=== PATIENT | female | born 1955 | race Caucasian/White ===

== ENCOUNTER 2018-09-04 10:37 | Inpatient (IN) | payer OTHER ==
[~2018-09-04] VITALS: Ht 162.6 cm; Wt 93.9 kg
[2018-09-04] MEDS: ALBUTEROL SULFATE HFA 8GM INHALATION AEROSOL INH SCH ×2 (01:10→20:50)
[~2018-09-04 10:37] MED LIST: ACETAMINOPHEN325 M1 PO; AMLODIPINE BESY10 MG PO; ANTI-DIARRHEA2 MG PO; ATORVASTATIN CA20 MG PO; CALCIUM 600 +1 EAC3 PO; CELEBREX200 MG PO; DICLOFENAC POTA50 MG PO; ESTRADIOL40 MG/1 ML IM; GABAPENTIN800 MG PO; IMURAN50 MG PO; LOSARTAN-HCTZ1 EAC1 PO; LOVASTATIN40 MG PO; MELATONIN3 M1 PO; NEXIUM40 MG PO; PERCOCET 10-321 EACH PO; PREMARIN0.3 MG VG; PREVACID30 MG PO; PROAIR HFA INH8.5 GM INH; SALAGEN5 MG PO; SIMETHICONE80 MG PO; [UNRECOGNIZED DRUG - OTHER] TOP
[2018-09-04] MEDS ORDERED: KETOROLAC TROMETHAMINE 30 MG/ML VIAL IV STA (11:42)
[2018-09-04] MEDS ORDERED: ONDANSETRON HCL INJ 2MG/ML 2ML 2 MG/ML VIAL IV STA (11:42)
[2018-09-04] MEDS ORDERED: MEPERIDINE HCL INJ 25 MG/ML VIAL IV STA (11:42)
[2018-09-04] MEDS ORDERED: DEXAMETHASONE SOD PHOS 10 MG/1 ML VIAL IM ONE (11:45)
[2018-09-04] MEDS ORDERED: MEPERIDINE HCL INJ 50 MG/ML INJ IV ONE (12:00)
--- NOTE | 2018-09-04 14:56 | Diagnostic Imaging Report ---
Examination: CT LUMBAR SPINE WO History: Lower back pain radiates down the right leg. Comparison studies: None Technique: Axial images were obtained through the lumbar spine from L1. Coronal and sagittal reconstructions obtained from the axial data. Dose modulation, iterative reconstruction, and/or weight based adjustment of the mA/kV was utilized to reduce the radiation dose to as low as reasonably achievable. Intravenous contrast: None Findings: The usual 5 non-rib bearing lumbar vertebral bodies are present. Alignment: Normal lordosis. No scoliosis. Soft tissues: Atherosclerotic calcification of the abdominal aorta. Paraspinal muscles: No abnormalities. Sacroiliac joints: No degenerative changes. Vertebrae: No fractures, infection or neoplasm. Degenerative changes: L1-L2: Mild bilateral facet arthropathy. No degenerative disc or canal or foraminal stenosis. L2-L3: Asymmetric to the left disc bulge with a left foraminal disc protrusion and mild bilateral facet arthropathy results in mild left neural foraminal narrowing. No right foraminal or canal stenosis. L3-L4: Asymmetric to the left disc bulge, moderate ligamentum flavum thickening and severe bilateral facet arthropathy result in moderate bilateral neural foraminal narrowing and severe canal stenosis. L4-L5: Grade I anterolisthesis without pars defect. Uncovering of a diffuse disc bulge, moderate ligamentum flavum thickening and severe bilateral facet arthropathy result in severe bilateral neural foraminal narrowing and moderate to severe canal stenosis. L5-S1: Asymmetric to the left disc bulge an severe bilateral facet arthropathy result in severe bilateral neural foraminal narrowing and mild canal stenosis. IMPRESSION: 1. Degenerative changes from L2 through L5 S1 with severe canal stenosis at L3-L4 and moderate to severe canal stenosis at L4-L5 and mild canal stenosis at L5-S1. 2. Severe bilateral neural foraminal narrowing at L4-L5 and L5-S1. 3. Degenerative grade I anterolisthesis of L4 on L5. Signed by: Dr. Juju Yarbrough M.D. on 09/04/2018 2:52 PM
[2018-09-04] MEDS ORDERED: MEPERIDINE HCL/PF 25 MG/0.5 ML AMP IV PRN (15:15)
[2018-09-04] MEDS ORDERED: MEPERIDINE HCL INJ 25 MG/ML VIAL IV PRN (15:30)
[2018-09-04] MEDS ORDERED: MEPERIDINE HCL INJ 50 MG/ML INJ IV PRN (15:30)
--- OUTSIDE RECORDS SUMMARY | 2018-09-04 15:40 | XMS REPORT ---
Author [facility] Address Unknown Phone Unavailable Care Team Providers Care Building Equipment Operator Name Role Phone May WESTBROOK Unavailable Unavailable Problems This patient has no known problems. Allergies, Adverse Reactions, Alerts This patient has no known allergies or adverse reactions. Medications This patient has no known medications. Results Test Description Test Time Test Comments Text Results Atomic Results Result Comments CT LUMBAR SPINE WO 2018-09-04 14:41:00 [facility] [address] [address] Patient Name: CHRISTOPHE TORRES MR #: [id number] : 1955 Age/Sex: 62/F Req #: [id number] Adm Physician: Ordered by: JORGE KAUR TOOLING ENGINEER Report #: [id number] Location: ER Room/Bed: Procedure: [id number] CT/CT LUMBAR SPINE WO Exam Date: 09/04/18 Exam Time: 1220 REPORT STATUS: Signed Examination: CT LUMBAR SPINE WO History: Lower back pain radiates down the right leg. Comparison studies: None Technique: Axial images were obtained through the lumbar spine from L1. Coronal and sagittal reconstructions obtained from the axial data. Dose modulation, iterative reconstruction, and/or weight based adjustment of the mA/kV was utilized to reduce the radiation dose to as low as reasonably achievable. Intravenous contrast: None Findings: The usual 5 non-rib bearing lumbar vertebral bodies are present. Alignment: Normal lordosis. No scoliosis. Soft tissues: Atherosclerotic calcification of the abdominal aorta. Paraspinal muscles: No abnormalities. Sacroiliac joints: No degenerative changes. Vertebrae: No fractures, infection or neoplasm. Degenerative changes: L1-L2: Mild bilateral facet arthropathy. No degenerative disc or canal or foraminal stenosis. L2-L3: Asymmetric to the left disc bulge with a left foraminal disc protrusion and mild bilateral facet arthropathy results in mild left neural foraminal narrowing. No right foraminal or canal stenosis. L3-L4: Asymmetric to the left disc bulge, moderate ligamentum flavum thickening and severe bilateral facet arthropathy result in moderate bilateral neural foraminal narrowing and severe canal stenosis. L4-L5: Grade I anterolisthesis without pars defect. Uncovering of a diffuse disc bulge, mo derate ligamentum flavum thickening and severe bilateral facet arthropathy result in severe bilateral neural foraminal narrowing and moderate to severe canal stenosis. L5-S1: Asymmetric to the left disc bulge an severe bilateral facet arthropathy result in severe bilateral neural foraminal narrowing and mild canal stenosis. IMPRESSION: 1. Degenerative changes from L2 through L5 S1 with severe canal stenosis at L3-L4 and moderate to severe canal stenosis at L4-L5 and mild canal stenosis at L5-S1. 2. Severe bilateral neural foraminal narrowing at L4-L5 and L5-S1. 3. Degenerative grade I anterolisthesis of L4 on L5. Signed by: Dr. Juju Yarbrough M.D. on 09/04/2018 2:52 PM Dictated By: JUJU WINTERS MD [id number] Transcribed By: ABEL on 09/04/18 145 COPY TO: JORGE KAUR NP
--- NOTE | 2018-09-04 17:10 | NUR ---
DR. Alexsander SIMMONS AT BEDSIDE AT THIS TIME
[2018-09-04] MEDS ORDERED: LORAZEPAM INJ 2 MG/ML VIAL IV PRN (17:15)
[2018-09-04] MEDS ORDERED: SIMETHICONE 80 MG CHEW PO PRN (17:15)
[2018-09-04] MEDS ORDERED: HYDROMORPHONE 1MG/1ML INJ IV PRN (17:15)
--- NOTE | 2018-09-04 17:30 | NUR ---
received report from ita in er. awaiting for pt to arrive to floor
[2018-09-04] MEDS: HYDROMORPHONE 2MG/ML 2 MG/ML ML IV PRN ×2 (18:05→20:53)
--- NOTE | 2018-09-04 18:08 | NUR ---
PT PREMEDICATED FOR MRI, WILL BE TAKEN FOR EXAM AND THEN TO INPATIENT ROOM.
[2018-09-04 19:48] VITALS: BP 124/98
[2018-09-04 20:00] VITALS: BP 107/53
[2018-09-04 20:02] VITALS: BP 124/98
--- NOTE | 2018-09-04 20:07 | Diagnostic Imaging Report ---
MRI SPINE LUMBAR WO HISTORY: Lower back pain COMPARISON: CT of the lumbar spine 09/04/2018 TECHNIQUE: Sagittal T1, sagittal T2, sagittal STIR, axial T2, coronal T2, and axial proton density weighted images of the lumbar spine were obtained without contrast. DISCUSSION: Number of non-rib bearing lumbar vertebral bodies: 5. Alignment: Normal lordosis. Mild lumbar levoscoliosis is present. Vertebrae: No definite evidence for fracture or neoplasm. Conus medullaris: Normal, ends at L2. Cauda equina: No masses or arachnoiditis. Posterior paraspinal muscles: Well preserved. No signal abnormalities. Soft tissues: Small T2 hyperintense lesion in the left kidney is likely a cyst. Mild multilevel disc degeneration is most prominent at L4-L5. There are nonspecific mild inflammatory endplate changes on the right at L4-L5. T12-L1: Patent canal and foramina. L1-L2: Patent canal and foramina. L2-L3: Disc bulge without significant canal or foraminal stenosis. L3-L4: Minimal grade 1 anterolisthesis of L3 on L4 due to prominent facet arthrosis. Mild to moderate canal stenosis due to uncovered disc bulge and ligamentum flavum thickening. Mild bilateral foraminal stenoses due to uncovered disc bulge and facet arthrosis. L4-L5: Grade 1-2 anterolisthesis of L4 on L5 due to prominent bilateral facet arthrosis. Moderate canal stenosis due to uncovered asymmetric disc bulge towards the right and ligamentum flavum thickening. Superimposed 7 mm right paracentral disc extrusion migrates superiorly by approximately 8 mm. Both lateral recesses are effaced. Severe right and mild to moderate left foraminal stenoses due to uncovered disc bulge and facet arthrosis. L5-S1: Mild to moderate right and moderate to severe left foraminal stenoses due to disc bulge and facet arthrosis. No significant canal stenosis. Facet arthrosis is also prominent at this level. IMPRESSION: 1. No evidence for acute fracture. 2. Mild multilevel disc degeneration, most prominent at L4-L5. Nonspecific mild inflammatory endplate changes on the right at L4-L5. 3. Minimal grade 1 anterolisthesis of L3 on L4 and grade1-2 anterolisthesis of L4 on L5 due to prominent facet arthrosis. 4. Moderate L4-L5 and mild to moderate L3-L4 degenerative canal stenoses. 5. Multilevel bilateral degenerative foraminal stenoses - severe right and mild to moderate left at L4-L5; mild to moderate right and moderate to severe left at L5-S1. Signed by: Dr. Baldo Fuentes M.D. on 09/04/2018 8:04 PM
[2018-09-04] MEDS: ONDANSETRON HCL INJ 2MG/ML 2ML 2 MG/ML VIAL IV PRN (20:53)
[2018-09-04] MEDS: MELATONIN 50 MG PO SCH (21:00)
[2018-09-04] MEDS ORDERED: MELATONIN 3 MG TAB PO SCH (21:00)
[2018-09-05] VITALS (8 sets, daily range): BP systolic 106–126; BP diastolic 51–79
[2018-09-05] MEDS: ONDANSETRON HCL INJ 2MG/ML 2ML 2 MG/ML VIAL IV PRN ×4 (00:56→21:25)
[2018-09-05] MEDS: HYDROMORPHONE 2MG/ML 2 MG/ML ML IV PRN ×2 (00:56→21:25)
[2018-09-05] MEDS: ALBUTEROL SULFATE HFA 8GM INHALATION AEROSOL INH SCH ×3 (07:00→23:00)
--- NOTE | 2018-09-05 07:20 | NUR ---
PT RESTING IN BED AA0X3. PS DENIES PAIN AT THIS TIME. PT IS ON COMPLETE BEDREST AT THIS TIME. PT STATES FEELING TO WEAK TO GET UP TO RR TO URINATE. WILL GIVEN BEDPAN PRN FOR RR PRIVILEGES. PT REPORTS NAUSEA AT THIS TIME, WILL GIVE PRN ZOFRAN FOR THIS. PT HAS A LEFT AC 20 SL PATENT AND DRY. WILL CONTINUE TO MONITOR PT AT THIS TIME, SIDE RAILSX2, BED WHEELS LOCKED, CALL LIGHT IS WITHIN EASY REACH, INSTRUCTED TO CALL FOR ASSISTANCE IF NEEDED. FAMILY IS AT BEDSIDE
[2018-09-05] MEDS: PANTOPRAZOLE SOD 40 MG TABEC PO SCH (07:30)
--- NOTE | 2018-09-05 08:00 | NUR ---
MD WEATHERS AWARE OF CONSULT NOW. IS OK WITH PT EATING BREAKFAST AND IS AWARE OF MRI IMPRESSION OF LUMBER SPINE. MD STATES HE WILL SEE PT LATER TODAY
--- NOTE | 2018-09-05 08:35 | NUR ---
Paged md ramon cook regarding pt c/o of nausea/vomiting after no relief from zofran this am. waiting for call back
[2018-09-05] MEDS ORDERED: AMLODIPINE BESYLATE 10 MG TAB PO SCH (09:00)
[2018-09-05] MEDS ORDERED: ATORVASTATIN 20 MG TAB PO SCH (09:00)
[2018-09-05] MEDS: AZATHIOPRINE 50 MG TAB PO SCH ×2 (09:00→16:13)
[2018-09-05] MEDS ORDERED: PROMETHAZINE 25MG/ NS 50ML (IV) IV PRN (09:30)
--- NOTE | 2018-09-05 09:41 | NUR ---
SPOKE WITH MD Alexsander SIMMONS REGARDING PT. HAS ORDERED PHENERGAN FOR NAUSEA. AND ORDERED BLADDER SCAN FOR PT REQUEST FOR FONTENOT. IF >[address] FONTENOT CATH ASKED TO CALL EVELINA TO SEE IF WANTED TO TAKE OVER PT CALLED MD HOYT. WILL TAKE OVER PT AT THIS TIME
--- NOTE | 2018-09-05 10:00 | NUR ---
BLADDER SCAN DONE MORE THAT 514CC OF URINE NOTED WILL PLACE FONTENOT AT THIS TIME
--- NOTE | 2018-09-05 10:40 | NUR ---
[address] AT THIS TIME . URINE DRAINING INTO FONTENOT BAG AT THIS TIME D[facility] URINE
[2018-09-05] MEDS: AMLODIPINE BESYLATE 10 MG TAB PO SCH (11:52)
--- NOTE | 2018-09-05 11:57 | NUR ---
REVIEWED HOME MEDICATION WITH PT AT BEDSIDE . MEDICATIONS UPDATED ON [facility] MEDS AT THIS TIME
--- NOTE | 2018-09-05 16:09 | NUR ---
pt c/o pain, notified pt that she has dilaudid for pain. notified pt that dilaudid is in the same group of pain med as morphine and codeine. pt states "no wonder i was throwing up last night and this morning". called md rosen for orders on pain med. md states to consult md webb for pain management, called md webb cell. no answer left voicemail at this time. awaiting for call back
[2018-09-05] MEDS ORDERED: LACTULOSE SYRUP 20 GM/30 ML UDC PO PRN (16:45)
--- NOTE | 2018-09-05 16:48 | NUR ---
called md webb again regarding consult no answer
[2018-09-05] MEDS ORDERED: HYDROMORPHONE 2MG/ML 2 MG/ML ML ONE (17:06)
--- NOTE | 2018-09-05 17:14 | NUR ---
Nutrition Intervention Note RD Recommendation(s) for Physician: -Continue cardiac diet as ordered -Rec Ensure Compact BID due to poor appetite Plan of Care: RD following, monitoring for tolerance and adequacy, ONS rec Nutrition reason for involvement: Nutrition Risk Trigger MST RD Assessment 09/05 - Chart reviewed. 62yo F, who was admitted for intractable low back pain. Pt reported decreased meal intake x4 days TANK CLEANER due to ambulating difficulty. Pt stated I am not eating much because I cant walk to the potty. Pt reported UBW ~200lb; no weight loss noted. No physical sign of muscle or fat loss upon observation. This AM, pt vomited after eating breakfast. Pt refused lunch because she was not hungry. No complains of nausea during my time of visit. Pt also complained of chewing difficulty with raw vegetables due to missing teeth (will enter food preferences in HT). No swallowing difficulty noted. RD offered Ensure to promote PO intake; pt was agreeable with plan. Will continue to monitor and follow. Principal Problems/Diagnoses: intractable low back pain PMH: no H &P in chart GI: Abdomen soft, non-tender, flatus present Skin: No pressure wound noted Labs: (09/05) no labs Meds: lipitor, zofran Ht: 64in Wt: 210lb BMI: 36kg/m2 IBW: 120lb Malnutrition Evaluation (09/05) The patient does not meet criteria for a specified degree of malnutrition at this time. Will re-evaluate at follow-up as appropriate. Nutrition Prescription (Diet Order): cardiac diet Estimated Nutritional Needs: Calories: 1210 1375kcal(22-25kcal/kg/d) Weight used: IBW Protein: 83 138g (1.5-2.5g/kg/d) Weight used: IBW Diet Adequacy: Not meeting calorie needs, Not meeting protein needs Diet Education Needs Assessment: Diet education not indicated. Nutrition Care Level: low Nutrition Diagnosis: Inadequate oral intake related to ambulating dysfunction as evidenced by pt stated I am not eating much because I cant walk to the potty (x4 days TANK CLEANER) as well as complains of nausea and vomiting this AM. Goal: Patient will meet 75-100% of estimated needs by follow up Progress: n/a Interventions: Cardiac diet, commercial beverage Monitoring/Evaluation: Total energy intake, Total protein intake, Modified diet, Liquid supplement, Weight change Signed: Kelly Perez, MS, RD, LD
--- NOTE | 2018-09-05 17:18 | NUR ---
Nausea(Zofran 4mg) and pain(Dilaudid 0.5mg) med given. Patient tolerated well. Lab,PCT, and Nurse Salesperson Stereo Equipment at bedside.
[2018-09-05 17:26] LABS: BASOPHILS % 0.1 % (0.0-1.0); EOSINOPHILS # (AUTO) 0.1 (0.0-0.4); EOSINOPHILS % 0.4 % (0.0-6.0); HEMATOCRIT 39.7 % (34.2-44.1); HEMOGLOBIN 13.1 g/dL (12.0-16.0); LYMPHOCYTES # (AUTO) 2.2 (1.0-3.2); LYMPHOCYTES % 17.1 % (18.0-39.1); MEAN CORPUSCULAR HEMOGLOBIN 30.6 pg (28-32); MEAN CORPUSCULAR VOLUME 92.8 fL (81-99); MONOCYTES # (AUTO) 1.5 (0.2-0.8); MONOCYTES % 11.2 % (4.4-11.3); NEUTROPHILS # (AUTO) 9.2 (2.1-6.9); NEUTROPHILS % 70.7 % (38.7-80.0); PLATELET COUNT 300 x10e3/uL (140-360); RED BLOOD COUNT 4.28 x10e6/uL (3.6-5.1); RED CELL DISTRIBUTION WIDTH 13.6 % (11.7-14.4)
[2018-09-05] MEDS: DOCUSATE SODIUM 100 MG CAP PO SCH (17:31)
[2018-09-05 17:44] LABS: ALANINE AMINOTRANSFERASE 25 IU/L (0-55); ALBUMIN 3.5 g/dL (3.5-5.0); ALBUMIN/GLOBULIN RATIO 0.9 (0.8-2.0); ALKALINE PHOSPHATASE 63 IU/L (40-150); ANION GAP 14.3 mmol/L (8-16); BLOOD UREA NITROGEN 16 mg/dL (7-26); BUN/CREATININE RATIO 21 (6-25); CALCIUM 9.4 mg/dL (8.4-10.2); CARBON DIOXIDE 26 mmol/L (22-29); CHLORIDE 101 mmol/L (98-107); CREATININE, SERUM 0.75 mg/dL (0.57-1.11); EST GLOMERULAR FILTRATION RATE > 60 ML/MIN (60-); GLUCOSE 95 mg/dL (74-118); POTASSIUM 3.3 mmol/L (3.5-5.1); SODIUM 138 mmol/L (136-145)
[2018-09-05] MEDS: GABAPENTIN 400 MG CAP PO SCH (20:02)
--- NOTE | 2018-09-05 20:08 | Consultation ---
DATE OF CONSULTATION: 09/05/2018 Consultation Note REASON FOR CONSULTATION: Low back and right leg pain. HISTORY OF PRESENT ILLNESS: The patient is a 62-year-old woman, who was seen for L4-5 spondylolisthesis, by me several years ago and referred for conservative treatment. She did fairly well. 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 A few month ago, she started to have some increasing low back pain radiating into the right hip. Recently, she took a trip to [place]. Upon her return, she developed excruciating low back pain that radiates down the anterolateral aspect of the right hip to the right knee and thompson associated with numbness and tingling that extends as far as the thompson and foot. She has been unable to ambulate due to pain for the past few days and was admitted through the emergency room for pain management. An MRI was performed and I was consulted. She denies any pain in the left leg. She denies bowel or bladder incontinence. PAST MEDICAL HISTORY: Significant for osteoarthritis and Behcet disease. The patient takes gabapentin and Imuran for that problem. PHYSICAL EXAMINATION: GENERAL: The patient is alert and comfortable in bed. When sitting up and standing she develops pain radiating to the right thigh. She has trouble ambulating because of the pain. The motor strength is mildly diminished in the right quadriceps, graded as 4/5. Sensation to light touch and pin prick is diminished in the right knee and anterior thigh compared to the left. Deep tendon reflexes are 1+ in the right patella, 2+ in the left patella, and 1+ in both Achilles tendons. Plantar responses are flexor. DIAGNOSTIC DATA: MRI of the lumbar spine reveals a grade I L4-5 spondylolisthesis superimposed but she has a right-sided disk herniation which migrates superiorly and laterally towards the axilla of the right L4 nerve roots. IMPRESSION: Right L4-5 spondylolisthesis and superimposed right-sided disk herniation symptomatic with a right L4 radiculopathy. RECOMMENDATIONS: I recommended a trial of conservative treatment. After a period of inpatient physical therapy here, the patient can be discharged home and ambulatory. She should then continue physical therapy as an outpatient for at least 1 month and undergo lumbar epidural steroid injections by pain specialists. She may call my office to arrange for those outpatient referrals. If she fails conservative treatment, we would then consider surgical treatment which would consist of decompression and fusion of the L4-5 segment. All these issues were explained to the patient in detail. She understands. Aaron Allen MD PP/BRAYDEN /[id number]
[2018-09-05] MEDS: MELATONIN 50 MG PO SCH (21:00)
[2018-09-06] VITALS (8 sets, daily range): BP systolic 110–147; BP diastolic 51–67
--- NOTE | 2018-09-06 00:44 | History and Physical ---
CHIEF COMPLAINT: Lower back pain for the last few years, got worsened over the last few weeks and hence, the patient came to ER yesterday night. HISTORY OF PRESENT MEDICAL ILLNESS: A 62-year-old pleasant white female with past medical history of multiple medical problems, was admitted at [facility] last night with . As per the patient, she has "bad back" for many years. Since last few weeks, the lower back pain gradually worsened where for the last 1 week, the patient was unable to get out of bed due to severe lower back pain and hence, the patient came to ER. In the emergency room, the patient was seen by emergency room doctor and was admitted for lower back pain management. Neurosurgeon, Dr. Allen has already seen the patient for low back pain. At present, the patient is lying over the bed, in no apparent distress. No chest pain. No shortness of breath. No diarrhea. No abdominal pain. No loss of consciousness. No palpitations. No headaches. No hematemesis. No melena. No hematuria. No dysuria. No fever. No cough. No witnessed seizures. Complains of vomiting x1 today. PAST MEDICAL HISTORY: 1. Hypertension. 2. Hyperlipidemia. 3. Chronic low back pain. 4. Behcet's disease. 5. DJD. 6. COPD. 7. CAD. 8. Cerna's esophagus. 9. Sjogren's syndrome. MEDICATIONS: As listed in chart. PAST SURGICAL HISTORY: 1. Bladder suspension surgery x2. 2. Hysterectomy. 3. Right shoulder total rotator cuff surgery. SOCIAL HISTORY: Former smoker. No alcohol. No illicit drug use. , lives with family. FAMILY HISTORY: Noncontributory. REVIEW OF SYSTEMS: As per HPI. PHYSICAL EXAMINATION: GENERAL: The patient is alert, awake, and oriented x3. No apparent distress. Lying in bed. VITAL SIGNS: Temperature is 98, pulse is 70 per minute, respiratory rate 16 per minute, blood pressure 120/60, and saturation is 96%. SKIN: No cyanosis. No icterus. No pallor. HEENT: Normocephalic and atraumatic. PERRLA plus. NECK: Soft and supple. No JVD. No carotid bruit. No lymphadenopathy. LUNGS: Air entry bilaterally equal. HEART: S1 and S2 present. No murmur, gallop, or rub. ABDOMEN: Soft and nontender. Bowel sounds plus. LEARNING COACH: Alert, awake, and oriented x3. No focal deficits. EXTREMITIES: No cyanosis. No clubbing. No edema. . No calf pain. LABORATORY DATA: Pending. IMAGING DATA: An MRI of lower lumbosacral spine noted. ASSESSMENT: 1. Acute on chronic low back pain with L4-5 spondylolisthesis plus disk herniation with right L4 radiculopathy. 2. History of hypertension, hyperlipidemia, Behcet's disease, Cerna's esophagus, Sjogren's syndrome, chronic obstructive pulmonary disease, degenerative joint disease. PLAN: Admit the patient to medical floor. Pain management consult, Dr. Aguiar. PT, OT evaluation. Neurosurgeon, Dr. Allen, consultation noted. Discussed with the patient in detail. As per patient, she is not allergic to Dilaudid, but she has side effect of nausea and vomiting with Dilaudid. Further care and treatment the patient in the hospital. We will continue other home medications. DVT and stress prophylaxis. MD LES Pérez/MODAtul /[id number]
[2018-09-06] MEDS: ALBUTEROL SULFATE HFA 8GM INHALATION AEROSOL INH SCH ×3 (07:00→23:00)
[2018-09-06] MEDS ORDERED: BISACODYL 10 MG SUPP PR ONE (07:30)
[2018-09-06] MEDS: HYDROMORPHONE 2MG/ML 2 MG/ML ML IV PRN ×2 (07:35→14:14)
[2018-09-06] MEDS ORDERED: POTASSIUM CHLORIDE 20 MEQ TAB CR PO STA (07:58)
[2018-09-06] MEDS: FENTANYL 25 MCG/HR PATCH TOP SCH (09:51)
[2018-09-06] MEDS: AMLODIPINE BESYLATE 10 MG TAB PO SCH (09:51)
[2018-09-06] MEDS: AZATHIOPRINE 50 MG TAB PO SCH ×2 (09:51→17:09)
[2018-09-06] MEDS: PANTOPRAZOLE SOD 40 MG TABEC PO SCH (09:51)
[2018-09-06] MEDS: LIDOCAINE 5% PATCH TP SCH (09:51)
[2018-09-06] MEDS: HYDROCHLOROTHIAZIDE 25 MG TAB PO SCH (09:51)
[2018-09-06] MEDS: DOCUSATE SODIUM 100 MG CAP PO SCH ×2 (09:51→17:09)
[2018-09-06] MEDS: LOSARTAN POTASSIUM 100 MG TAB PO SCH (09:51)
[2018-09-06] MEDS: GABAPENTIN 400 MG CAP PO SCH ×3 (09:51→21:30)
[2018-09-06] MEDS: HYDROCODONE/APAP 10MG-325MG TAB PO PRN ×3 (11:33→21:52)
[2018-09-06 12:18] LABS: CLARITY,URINE CLOUDY (CLEAR); COLOR,URINE YELLOW (YELLOW); KETONES,URINE NEGATIVE (NEGATIVE); LEUKOCYTE ESTERASE ,URINE 2+ (NEGATIVE); NITRITE,URINE POSITIVE (NEGATIVE); PROTEIN,URINE DIPSTICK 1+ (NEGATIVE); URINE UROBILINOGEN 1 mg/dL (0.2 - 1)
[2018-09-06 12:19] LABS: BILIRUBIN,URINE NEGATIVE (NEGATIVE)
[2018-09-06 12:30] LABS: BACTERIA,URINE MODERATE /HPF; EPITHELIAL CELLS,URINE MODERATE /LPF
--- NOTE | 2018-09-06 13:06 | Consultation ---
DATE OF CONSULTATION: 09/06/2018 Urology consultation REASON FOR CONSULTATION: Urinary retention. HISTORY OF PRESENT ILLNESS: Sudha Singh is a 62-year-old woman with a longstanding urological history, the patient had a previous bladder suspension by a physician in [place]. The patient also had a previous JOHNATHON BSO. The patient had prolapse of her vagina and underwent a vaginal vault suspension performed transvaginally with mesh by a hydrogeologist. The hydrogeologist also did a sling procedure at one point in time. The patient has had three procedures to excise or trim back eroded vaginal mesh. She was evaluated by Dr. Newman in a urological evaluation several years ago, underwent a cystoscopy to prove that her mesh was not eroding into the urinary tract. The patient did not want to return and see Dr. Newman following that and her hydrogeologist, Dr. Chavis referred her to Dr. Janae Woods, who has done various studies on her, but none in the last several years. She has had recurrent urinary tract infection. She also has what sounds like both urge and stress type urinary incontinence. She was also told by her hydrogeologist she has some sort of hernia and is pending surgery on September 16. The patient is open to transferring her care back to the [facility] due to the fact that she does not like driving down to the [facility]. The patient is currently admitted with severe back pain. She has disk herniation. She is pending physical therapy and pain management prior to re-evaluation by the Neurosurgery service. The patient could not urinate. Bladder scan revealed a bladder volume of 500 mL. A Barbosa catheter was placed with the volume obtained upon Barbosa catheterization was unfortunately not recorded. The patient was also found to have a left renal cyst on MRI test for her back. PAST MEDICAL AND SURGICAL HISTORY: 1. Right shoulder surgery. 2. JOHNATHON BSO. 3. Status post tubal ligation. 4. Status post ectopic . 5. 3, para 2 by vaginal delivery and 1 ectopic. 6. Hypertension. 7. Hypercholesterolemia. 8. Early COPD. 9. Former smoker. 10. Obesity. 11. Chronic low back pain. 12. Behcet's disease. 13. Degenerative joint disease. 14. Coronary artery disease with an adequate coronary catheterization performed recently. 15. Esophageal reflux disease. 16. Sjogren syndrome. FAMILY HISTORY: Noncontributory to the active urological problems. CURRENT MEDICATIONS: Refer to the MAR. ALLERGIES: PLEASE REFER TO THE MAR. REVIEW OF SYSTEMS: Discussed as above in the history of present illness and past medical history, otherwise negative for all systems. PHYSICAL EXAMINATION: GENERAL: A morbidly obese 62-year-old woman lying in bed, in no apparent distress. She is currently afebrile. VITAL SIGNS: Currently stable. ABDOMEN: Soft, nondistended, nontender. Obese. No masses palpable. GENITOURINARY: Normal external female genitalia. There is a Barbosa catheter in place draining clear urine out. Barbosa catheter is in good position. The patient does have some vaginal wall atrophy in the hospital that is very difficult for me to employee health nurse the extent of any prolapse and also whether or not there is any erosion that is visible in this inadequate setting. For the remaining physical examination and systems, please refer to the admission history and physical on the chart. LABORATORY STUDIES: White blood cell count slightly elevated at 12,990, hemoglobin normal 13.1, platelets are 300. The patient's creatinine is normal at 0.75. Her potassium is slightly low at 3.3. MRI of the lumbar spine revealed a cyst. Renal sonography performed on May 26, 2011 showed mild bilateral hydronephrosis. ASSESSMENT: 1. Urinary retention for 500 mL plus. 2. Neurogenic bladder, most likely due to back issues. 3. Mixed type urinary incontinence. 4. Urinary tract infections. 5. Left renal cyst. 6. Leukocytosis. 7. Hypokalemia. 8. History of bilateral hydronephrosis. 9. Obesity. PLAN: 1. I will order a renal ultrasound. 2. I will order urine culture and sensitivity. 3. The patient needs to be discharged home with a Barbosa catheter with outpatient urodynamics planned in the office setting. 4. The patient needs ongoing neurological followup. 5. I will put a hold on the patient's occasional caregiver procedure, pending urological workup and back pain management. Thank you very much for involving us in the care of your patient. We will be happy to follow her along with you as well as an outpatient. Nelson Carrillo MD [place]/MODL /[id number] cc: Nai Stallworth MD
--- NOTE | 2018-09-06 13:47 | NUR ---
CASE MANAGEMENT INITIAL ASSESSMENT [employer] to bedside to discuss plan of care with patient/family. CM/SW role and care transitions discussed. Anticipated discharge plan discussed along with duration of care. CM/SW discussed patients right to make decisions in care. CM work hours given. Patient lives: Admit/Transfer: Hospital/ER visits since last admit: POA/Emergency contact: Current/Previous Home Health: PCP/Follow-up Care: Current/Previous DME: Medications (referring to index hospitalization or the first time you were in the hospital) a. Were changes made in your medications when you were in the hospital on [date of index hospitalization]? Yes No Not sure Explain: Note: If no or not sure, please skip to question d b. Did you understand the changes? Yes No Explain: c. Were you able to obtain your new medications right away? Yes Non/a SNF only Explain: d. Were you able to take your medications like the doctor wanted you to? Yes No Explain: e. Did the hospital give you an accurate, easy to understand list of medications when you left? Yes No n/a SNF only Explain: Scale of 1-10 how comfortable does patient feel with disease management in outpatient setting: Other Services: none at this time Employment Status: UNEMPLOYED Areas of Concerns: PAIN MANAGEMENT Referral Needs: NONE AT THIS TIME Education Needs: PAIN MANAGEMENT IMM/WHITTAKER given and signed (if applicable): N/A Goal for discharge: DISCHARGE HOME WITH NO NEEDS CM left business card at the bedside with contact information. Name and number was also written on the patients whiteboard. Patient verbalized understanding of discussion. CM will follow-up with ongoing discharge and transition of care needs.
--- NOTE | 2018-09-06 14:42 | Diagnostic Imaging Report ---
EXAM: Renal Ultrasound INDICATION: Evaluate cyst. History of hydronephrosis. COMPARISON: None TECHNIQUE: Transverse and longitudinal images of the kidneys and bladder were obtained. FINDINGS: Right Kidney: Length: 11.0 x 4.7 x 5.1 cm Appearance: Normal echogenicity. Collecting system: No hydronephrosis Stones: None Cyst/Mass: None Left Kidney: Length: 12.3 x 6.1 x 6.5 cm Appearance: Normal echogenicity. Collecting system: No hydronephrosis. Stones: None Cyst/Mass: None Bladder: Decompressed with Barbosa catheter in place. IMPRESSION: Unremarkable renal ultrasound. No sonographic evidence of hydronephrosis or cyst. Signed by: Dr. Beatriz Rueda MD on 09/06/2018 2:39 PM
[2018-09-06] MEDS: ENOXAPARIN SOD INJ 40 MG/0.4 ML SYR SC SCH (17:09)
--- NOTE | 2018-09-06 19:17 | NUR ---
received report, patient in bed with family at side. aaox3, breathing even and unlabored, no distress observed. no needs voiced. bed locked and in lowest position, call light and belongings within easy reach.
[2018-09-06] MEDS: ATORVASTATIN 20 MG TAB PO SCH (21:30)
[2018-09-06] MEDS: MELATONIN 3 MG TAB PO SCH (21:30)
[2018-09-07] VITALS (7 sets, daily range): BP systolic 106–137; BP diastolic 53–63
[2018-09-07] MEDS: HYDROMORPHONE 2MG/ML 2 MG/ML ML IV PRN ×2 (05:00→13:16)
[2018-09-07] MEDS: ALBUTEROL SULFATE HFA 8GM INHALATION AEROSOL INH SCH ×3 (07:00→23:00)
[2018-09-07 07:06] LABS: BASOPHILS # (AUTO) 0.1 (0.0-0.1); BASOPHILS % 0.6 % (0.0-1.0); EOSINOPHILS # (AUTO) 0.3 (0.0-0.4); EOSINOPHILS % 2.8 % (0.0-6.0); HEMATOCRIT 37.3 % (34.2-44.1); HEMOGLOBIN 12.3 g/dL (12.0-16.0); LYMPHOCYTES # (AUTO) 2.5 (1.0-3.2); LYMPHOCYTES % 27.8 % (18.0-39.1); MEAN CORPUSCULAR HEMOGLOBIN 30.4 pg (28-32); MEAN CORPUSCULAR VOLUME 92.3 fL (81-99); MONOCYTES # (AUTO) 0.8 (0.2-0.8); MONOCYTES % 9.2 % (4.4-11.3); NEUTROPHILS # (AUTO) 5.3 (2.1-6.9); NEUTROPHILS % 59.3 % (38.7-80.0); PLATELET COUNT 247 x10e3/uL (140-360); RED BLOOD COUNT 4.04 x10e6/uL (3.6-5.1); RED CELL DISTRIBUTION WIDTH 14.2 % (11.7-14.4)
[2018-09-07 07:23] LABS: ANION GAP 10.4 mmol/L (8-16); BLOOD UREA NITROGEN 12 mg/dL (7-26); BUN/CREATININE RATIO 16 (6-25); CALCIUM 8.9 mg/dL (8.4-10.2); CARBON DIOXIDE 29 mmol/L (22-29); CHLORIDE 103 mmol/L (98-107); CREATININE, SERUM 0.76 mg/dL (0.57-1.11); EST GLOMERULAR FILTRATION RATE > 60 ML/MIN (60-); GLUCOSE 104 mg/dL (74-118); MAGNESIUM 2.2 MG/DL (1.3-2.1); POTASSIUM 3.4 mmol/L (3.5-5.1); SODIUM 139 mmol/L (136-145)
[2018-09-07] MEDS ORDERED: LIDOCAINE 5% PATCH TP SCH (09:00)
[2018-09-07] MEDS: ONDANSETRON HCL INJ 2MG/ML 2ML 2 MG/ML VIAL IV PRN ×2 (09:50→13:16)
[2018-09-07] MEDS: PANTOPRAZOLE SOD 40 MG TABEC PO SCH (10:15)
[2018-09-07] MEDS: DOCUSATE SODIUM 100 MG CAP PO SCH ×2 (10:15→16:42)
[2018-09-07] MEDS: LIDOCAINE 5% PATCH TP SCH (10:15)
[2018-09-07] MEDS: AMLODIPINE BESYLATE 10 MG TAB PO SCH (10:15)
[2018-09-07] MEDS: LOSARTAN POTASSIUM 100 MG TAB PO SCH (10:15)
[2018-09-07] MEDS: HYDROCHLOROTHIAZIDE 25 MG TAB PO SCH (10:15)
[2018-09-07] MEDS: GABAPENTIN 400 MG CAP PO SCH ×3 (10:15→21:07)
[2018-09-07] MEDS: AZATHIOPRINE 50 MG TAB PO SCH ×2 (10:15→16:43)
[2018-09-07] MEDS: HYDROCODONE/APAP 10MG-325MG TAB PO PRN ×2 (10:16→18:27)
--- NOTE | 2018-09-07 12:57 | NUR ---
CM communication received on Sunday requesting rolling walker for patient. SW provided patient with in house walker. [place] form completed and signed. Yellow copy given to patient, Green placed in DME folder in PACU.
[2018-09-07] MEDS ORDERED: POTASSIUM CHLORIDE 20 MEQ TAB CR PO ONE ×2 (16:30→18:30)
[2018-09-07] MEDS: ENOXAPARIN SOD INJ 40 MG/0.4 ML SYR SC SCH (16:43)
--- NOTE | 2018-09-07 19:11 | NUR ---
received patient aaox3, stable condition, resting in bed. no needs voiced at this time. bed locked and in lowest position, call light and belongings within easy reach. instructed to call for assistance as needed, patient verbalized understanding.
[2018-09-07] MEDS: ATORVASTATIN 20 MG TAB PO SCH (21:07)
[2018-09-07] MEDS: MELATONIN 3 MG TAB PO SCH (21:07)
[2018-09-07] MEDS: AZTREONAM 1 GM/NS 50 ML 50 ML IV SCH (21:11)
[2018-09-08] VITALS (8 sets, daily range): BP systolic 104–136; BP diastolic 51–64
[2018-09-08] MEDS: HYDROCODONE/APAP 10MG-325MG TAB PO PRN ×4 (01:28→20:23)
[2018-09-08] MEDS: AZTREONAM 1 GM/NS 50 ML 50 ML IV SCH ×3 (05:43→20:24)
[2018-09-08 06:54] LABS: ALANINE AMINOTRANSFERASE 21 IU/L (0-55); ALBUMIN 3.1 g/dL (3.5-5.0); ALBUMIN/GLOBULIN RATIO 0.8 (0.8-2.0); ALKALINE PHOSPHATASE 68 IU/L (40-150); ANION GAP 12.2 mmol/L (8-16); BLOOD UREA NITROGEN 12 mg/dL (7-26); BUN/CREATININE RATIO 16 (6-25); CALCIUM 9.6 mg/dL (8.4-10.2); CARBON DIOXIDE 28 mmol/L (22-29); CHLORIDE 104 mmol/L (98-107); CREATININE, SERUM 0.77 mg/dL (0.57-1.11); EST GLOMERULAR FILTRATION RATE > 60 ML/MIN (60-); GLUCOSE 108 mg/dL (74-118); POTASSIUM 4.2 mmol/L (3.5-5.1); SODIUM 140 mmol/L (136-145)
[2018-09-08] MEDS: ALBUTEROL SULFATE HFA 8GM INHALATION AEROSOL INH SCH ×2 (07:00→15:00)
[2018-09-08] MEDS: ONDANSETRON HCL INJ 2MG/ML 2ML 2 MG/ML VIAL IV PRN ×3 (07:18→17:29)
[2018-09-08] MEDS: HYDROMORPHONE 2MG/ML 2 MG/ML ML IV PRN ×2 (08:40→17:30)
--- NOTE | 2018-09-08 08:40 | NUR ---
PT SITTING ON EDGE OF BED HAVING BREAKFAST. SPOUSE AT BEDSIDE.
[2018-09-08] MEDS: AZATHIOPRINE 50 MG TAB PO SCH ×2 (09:00→16:30)
[2018-09-08] MEDS: AMLODIPINE BESYLATE 10 MG TAB PO SCH (09:50)
[2018-09-08] MEDS: PANTOPRAZOLE SOD 40 MG TABEC PO SCH (09:50)
[2018-09-08] MEDS: LOSARTAN POTASSIUM 100 MG TAB PO SCH (09:50)
[2018-09-08] MEDS: GABAPENTIN 400 MG CAP PO SCH ×3 (09:50→20:24)
[2018-09-08] MEDS: LIDOCAINE 5% PATCH TP SCH (09:50)
[2018-09-08] MEDS: HYDROCHLOROTHIAZIDE 25 MG TAB PO SCH (09:50)
[2018-09-08] MEDS: DOCUSATE SODIUM 100 MG CAP PO SCH ×2 (09:50→17:29)
[2018-09-08] MEDS: ENOXAPARIN SOD INJ 40 MG/0.4 ML SYR SC SCH (17:29)
[2018-09-08] MEDS: MELATONIN 3 MG TAB PO SCH (20:24)
[2018-09-08] MEDS: ATORVASTATIN 20 MG TAB PO SCH (20:24)
[2018-09-09 00:27] VITALS: BP 120/70
[2018-09-09] MEDS: HYDROCODONE/APAP 10MG-325MG TAB PO PRN ×2 (00:30→16:50)
[2018-09-09 04:41] VITALS: BP 138/72
[2018-09-09] MEDS: AZTREONAM 1 GM/NS 50 ML 50 ML IV SCH ×2 (05:55→14:40)
[2018-09-09 06:34] LABS: BASOPHILS % 0.5 % (0.0-1.0); EOSINOPHILS # (AUTO) 0.4 (0.0-0.4); EOSINOPHILS % 4.6 % (0.0-6.0); HEMATOCRIT 37.5 % (34.2-44.1); HEMOGLOBIN 12.2 g/dL (12.0-16.0); LYMPHOCYTES # (AUTO) 2.7 (1.0-3.2); LYMPHOCYTES % 31.5 % (18.0-39.1); MEAN CORPUSCULAR HEMOGLOBIN 30.2 pg (28-32); MEAN CORPUSCULAR HGB CONC 32.5 g/dL (31-35); MEAN CORPUSCULAR VOLUME 92.8 fL (81-99); MONOCYTES # (AUTO) 0.8 (0.2-0.8); MONOCYTES % 8.9 % (4.4-11.3); NEUTROPHILS # (AUTO) 4.7 (2.1-6.9); NEUTROPHILS % 54.3 % (38.7-80.0); PLATELET COUNT 259 x10e3/uL (140-360); RED BLOOD COUNT 4.04 x10e6/uL (3.6-5.1); RED CELL DISTRIBUTION WIDTH 13.7 % (11.7-14.4)
[2018-09-09 06:48] LABS: ANION GAP 11.5 mmol/L (8-16); BLOOD UREA NITROGEN 12 mg/dL (7-26); BUN/CREATININE RATIO 15 (6-25); CALCIUM 9.1 mg/dL (8.4-10.2); CARBON DIOXIDE 29 mmol/L (22-29); CHLORIDE 100 mmol/L (98-107); CREATININE, SERUM 0.79 mg/dL (0.57-1.11); EST GLOMERULAR FILTRATION RATE > 60 ML/MIN (60-); GLUCOSE 102 mg/dL (74-118); POTASSIUM 3.5 mmol/L (3.5-5.1); SODIUM 137 mmol/L (136-145)
[2018-09-09] MEDS: ONDANSETRON HCL INJ 2MG/ML 2ML 2 MG/ML VIAL IV PRN ×2 (07:11→14:40)
[2018-09-09] MEDS: HYDROMORPHONE 2MG/ML 2 MG/ML ML IV PRN ×2 (07:39→15:04)
[2018-09-09 07:45] VITALS: BP 122/59
[2018-09-09 08:00] VITALS: BP 122/59
[2018-09-09] MEDS: PANTOPRAZOLE SOD 40 MG TABEC PO SCH (08:26)
[2018-09-09] MEDS: FENTANYL 25 MCG/HR PATCH TOP SCH (08:27)
[2018-09-09] MEDS: HYDROCHLOROTHIAZIDE 25 MG TAB PO SCH (08:27)
[2018-09-09] MEDS: AMLODIPINE BESYLATE 10 MG TAB PO SCH (08:27)
[2018-09-09] MEDS: LOSARTAN POTASSIUM 100 MG TAB PO SCH (08:27)
[2018-09-09] MEDS: DOCUSATE SODIUM 100 MG CAP PO SCH (08:27)
[2018-09-09] MEDS: AZATHIOPRINE 50 MG TAB PO SCH (08:27)
[2018-09-09] MEDS: LIDOCAINE 5% PATCH TP SCH (08:27)
[2018-09-09] MEDS: GABAPENTIN 400 MG CAP PO SCH ×2 (08:27→15:04)
[2018-09-09 12:30] VITALS: BP 122/64
[2018-09-09] MEDS ORDERED: LIDOCAINE 5% PATCH TP ONE (13:00)
--- NOTE | 2018-09-09 13:16 | NUR ---
WILLIE spoke with KHURRAM Trujillo regarding pt's progress with therapy. She stated that pt walked 60 ft and would be ok to discharge home with home health. She stated that pt can get in and out of her house and she has educated pt on safety precautions. CM received order for home health and DME. Spoke with pt at bedside and explained to her that we would have to go thru [facility] and they would find a home health company that is in network. Pt is agreeable to that. Pt stated that her used [facility] for his CPAP machine and she would like to use them for her DME. She stated that she understood she would have to qualify for DMEs and that if she didn't she would pay out of pocket for them. Choice letter signed for [facility] and [facility]. Signed copy placed in chart. Copy to pt. Referral for wheelchair and bedside commode faxed to [facility] at [phone]. Informed Alyse, liaison with [facility] of referral and informed her that pt is pending discharge today. WILLIE called and spoke with Kalee at [facility] [phone] and initiated home health referral. She stated that typically home health set up can take up to 24-72 hrs. WILLIE informed her that pt is pending discharge today. Kalee stated she will expedite the request. Pending case # [id number] Clinicals were faxed to [phone].
--- NOTE | 2018-09-09 16:08 | NUR ---
Called and spoke to Mana Beltre at [facility]. Stated that home health case has been picked up by [facility] [facility]. CM called and spoke to Marcy from [facility] P [phone] / F [phone]. She stated that they have accepted pt and will reach out to her to set up a time / day to come out and see pt. Pt was given home health information and informed to call home health company if she does not hear from them within 24 hrs. Pt's wheelchair and BSC has been delivered to bedside.
[2018-09-09] MEDS ORDERED: ULTRAM50 MG PO (16:16)
[2018-09-09] MEDS ORDERED: CIPRO500 MG PO (16:17)
[2018-09-09] MEDS ORDERED: ZOFRAN8 MG PO (16:18)
[2018-09-09] MEDS ORDERED: DOCUSATE SODIU100 MG PO (16:18)
[2018-09-09] MEDS ORDERED: LACTULOSE20 GM/30 M PO (16:18)
[2018-09-09 16:31] VITALS: BP 124/53
--- NOTE | 2018-09-09 17:01 | NUR ---
dc instructions given and prescriptions given, pt verbalized understanding. iv dc pressure dressing applied and taped. boggs left in place , teaching done to family and pt about leg bag. understands follow up visit with consults. wheel chair, walker, and bedside commode are with pt, hh has been arranged. pt is ready for dc at this time
--- NOTE | 2018-09-09 17:32 | NUR ---
pt is off unit to home at this time
== END 2018-09-09 17:15 | disposition home health service (06) | DRG 552 ==
LOC: ER 10:37 → ERHOLD 15:37 → MED/SURG 19:34
PROVIDERS: ADMIT Internal Medicine; ATTEND Internal Medicine
DX: M43.16 Spondylolisthesis, lumbar region (principal); M35.2 Behcet's disease; M54.5 Low back pain; R33.9 Retention of urine, unspecified; K46.9 Unspecified abdominal hernia without obstruction or gangrene; E78.00 Pure hypercholesterolemia, unspecified; J44.9 Chronic obstructive pulmonary disease, unspecified; Z87.891 Personal history of nicotine dependence; I25.10 Atherosclerotic heart disease of native coronary artery without angina pectoris; M35.00 Sjogren syndrome, unspecified; N39.46 Mixed incontinence; E66.9 Obesity, unspecified; Z68.35 Body mass index [BMI] 35.0-35.9, adult; G89.29 Other chronic pain; M51.16 Intervertebral disc disorders with radiculopathy, lumbar region
CPT/HCPCS: 36415; 72131; 72148; 76770; 80048; 80053; 81001; 83735; 85025; 87086; 87186; 94664; 97139; 99284; J1100; J1650; J1885; J2060; J2175; J2405; J2550